=== PATIENT | female | born 1995 | race Caucasian/White ===

== ENCOUNTER 2022-07-16 07:40 | Emergency (ER) | payer MEDICAID ==
[~2022-07-16] VITALS: Ht 170.2 cm; Wt 108.9 kg
[2022-07-16 07:48] VITALS: BP 146/68
[2022-07-16] MEDS ORDERED: ACETAMINOPHEN 325 MG TABLET PO ONE (08:00)
[2022-07-16] MEDS ORDERED: KETOROLAC TROMETHAMINE INJ 60 MG/2 ML VIAL IM ONE (08:00)
--- NOTE | 2022-07-16 08:09 | NUR ---
URINE COLLECTED AND SENT TO LAB. CALLED FOR GROUNDING ENGINEER.
--- NOTE | 2022-07-16 08:10 | NUR ---
XRAY AT BEDSIDE.
[2022-07-16] MEDS ORDERED: KETOROLAC TROMETHAMINE INJ 30 MG/ML VIAL ONE (08:16)
[2022-07-16] MEDS ORDERED: ACETAMINOPHEN 325 MG TABLET ONE (08:16)
--- NOTE | 2022-07-16 09:01 | NUR ---
EMT AT BEDSIDE FOR KNEE IMMOBILIZER PLACEMENT
--- NOTE | 2022-07-16 09:03 | NUR ---
Patient discharged to home in stable condition. Written and verbal after care instructions given. Patient verbalizes understanding of instruction.
== END 2022-07-16 09:22 | disposition home or self-care (01) ==
LOC: ER 07:50
DX: M25.561 Pain in right knee (principal)
CPT/HCPCS: 99284; 29505; 96372; 73562; 84703; J1885

== ENCOUNTER 2023-12-19 22:35 | Emergency (ER) | payer MEDICAID ==
[~2023-12-19] VITALS: Ht 170.2 cm; Wt 104.3 kg
[2023-12-20 00:27] LABS: BASOPHILS # (AUTO) 0.1 K/uL (0.0-0.2); BASOPHILS % (AUTO) 0.9 % (0.0-2.0); EOSINOPHILS # (AUTO) 0.6 K/uL (0.0-0.7); EOSINOPHILS % (AUTO) 5.1 % (0.0-6.0); HEMATOCRIT 36 % (33-45); HEMOGLOBIN 12.5 g/dL (11.5-14.8); LYMPHOCYTES # (AUTO) 4.1 K/uL (0.8-4.8); LYMPHOCYTES % (AUTO) 35.2 % (20.0-44.0); MEAN CORPUSCULAR HEMOGLOBIN 29 PG (26.0-33.0); MEAN CORPUSCULAR HGB CONC 34 g/dl (31.0-36.0); MEAN CORPUSCULAR VOLUME 86 fL (82-100); MONOCYTES # (AUTO) 1.3 K/uL (0.1-1.30); MONOCYTES % (AUTO) 11.7 % (2.0-12.0); NEUTROPHILS # (AUTO) 5.4 K/uL (1.8-8.9); NEUTROPHILS % (AUTO) 47.1 % (43.0-81.0); PLATELET COUNT (AUTO) 268 K/uL (150-450); RED BLOOD CELL COUNT(AUTO) 4.25 MIL/uL (4.0-5.2); RED CELL DISTRIBUTION WIDTH 12.8 % (11.5-15.0); WHITE BLOOD COUNT (AUTO) 11.5 K/uL (4.3-11.0)
[2023-12-20 00:34] LABS: CALCIUM, SERUM 8.5 mg/dL (8.5-10.1); CREATININE 0.7 mg/dL (0.6-1.3); POTASSIUM 3.7 mmol/L (3.5-5.1)
[2023-12-20 00:47] LABS: ALBUMIN 3.4 g/dL (3.4-5.0); BILIRUBIN,TOTAL 0.2 mg/dL (0.2-1.0)
[2023-12-20 00:59] LABS: APPEARANCE,URINE CLEAR (CLEAR); BILIRUBIN,URINE NEGATIVE (NEGATIVE); BLOOD, URINE NEGATIVE Ery/uL (NEGATIVE); COLOR,URINE YELLOW (YELLOW); KETONES,URINE TRACE mg/dL (NEGATIVE); LEUKOCYTE ESTERASE ,URINE NEGATIVE (NEGATIVE); NITRITE, URINE NEGATIVE (NEGATIVE); PH,URINE 6.5 (5.0-8.0); PROTEIN,URINE NEGATIVE (NEGATIVE); UGLUCOSE NEGATIVE (NEGATIVE); UROBILINOGEN,URINE 0.2 EU/dL (0.2)
[2023-12-20 01:01] LABS: PREGNANCY TEST URINE QUAL NEGATIVE (NEGATIVE)
[2023-12-20 01:05] LABS: THYROID STIMULATING HORMONE 3.63 uIU/mL (0.358-3.74)
[2023-12-20] MEDS ORDERED: KETOROLAC TROMETHAMINE INJ 30 MG/ML VIAL ONE (04:27)
[2023-12-20] MEDS: KETOROLAC TROMETHAMINE INJ 60 MG/2 ML VIAL IM ONE (04:30)
[2023-12-20 05:54] VITALS: BP 121/68; TEMP 98; O2SAT 98
== END 2023-12-20 05:55 | disposition home or self-care (01) ==
LOC: ER 22:38
DX: R51.9 Headache, unspecified (principal); M54.2 Cervicalgia; R06.02 Shortness of breath
CPT/HCPCS: 99285; 71045; 93005; 85025; 85378; 36415 ×2; 84443; 80053; 84484; 83880; 72125; 96372; 70450; 84703; 85652; 81003; J1885